=== PATIENT | female | born 1955 | race Caucasian/White ===

== ENCOUNTER 2018-06-26 18:48 | Emergency (ER) | payer MEDICARE ==
[~2018-06-26] VITALS: Ht 167.6 cm; Wt 90.7 kg
[2018-06-26] MEDS ORDERED: CELEXA40 MG PO (19:00)
[2018-06-26] MEDS ORDERED: VRAYLAR4.5 MG PO (19:00)
[2018-06-26] MEDS ORDERED: OMEPRAZOLE40 MG PO (19:01)
[2018-06-26] MEDS ORDERED: LAMICTAL150 MG PO (19:01)
[2018-06-26] MEDS ORDERED: CLONAZEPAM 1 MG1 M1 PO ×2 (19:02→21:49)
[2018-06-26 19:30] LABS: ABSOLUTE BASOPHILS 0.1 thou/uL (0.0-0.2); ABSOLUTE EOSINOPHILS 0.2 thou/uL (0.0-0.7); ABSOLUTE LYMPHOCYTES 1.5 thou/uL (0.8-5.3); ABSOLUTE MONOCYTES 1.1 thou/uL (0.0-1.2); ABSOLUTE NEUTROPHILS 9.6 thou/uL (1.6-8.1); BASOPHILS 1.1 %; EOSINOPHILS 1.7 %; HEMATOCRIT 52.2 % (37.0-47.0); HEMOGLOBIN 17.2 gm/dL (12.0-15.0); LYMPHOCYTES 12.1 %; MCH 30.1 pg (26.0-34.0); MCHC 32.8 g/dL (28.0-37.0); MCV 91.7 fL (80.0-100.0); MONOCYTES 8.6 %; NUCLEATED RBCS 0 /100WBC; PLATELET COUNT* 656 thou/uL (150-400); POLYS 76.5 %; RDW-CV 14.9 % (10.5-14.5); WBC 12.6 thou/uL (4.0-11.0)
[2018-06-26 19:42] LABS: INR 1.1; PROTIME 10.8 Seconds (9.20-11.50)
[2018-06-26 20:02] LABS: ANION GAP 11 mmol/L (7-16); BUN 14 mg/dL (7-18); CALCIUM 9.2 mg/dL (8.5-10.1); CHLORIDE 102 mmol/L (98-107); CO2 30 mmol/L (21-32); CREATININE 0.7 mg/dL (0.6-1.3); GLUCOSE 112 mg/dL (70-99); SODIUM 143 mmol/L (136-145); TROPONIN-I LEVEL <0.06 ng/mL (<0.06)
[2018-06-26 20:03] LABS: ALBUMIN 3.8 g/dL (3.4-5.0); ALKALINE PHOSPHATASE 80 U/L (46-116); LIPASE 178 U/L (73-393); MAGNESIUM 2.2 mg/dL (1.8-2.4); NT-PRO BRAIN NAT PEPTIDE 419 pg/mL (<300); SGOT 21 U/L (15-37); SGPT 33 U/L (30-65); TOTAL BILIRUBIN 0.8 mg/dL (<0.1-1.0); TOTAL PROTEIN 7.5 g/dL (6.4-8.2)
[2018-06-26 20:06] LABS: POTASSIUM 2.9 mmol/L (3.5-5.1)
[2018-06-26] MEDS ORDERED: TRAMADOL 50 MG50 MG PO (21:49)
[2018-06-26] MEDS ORDERED: ZOFRAN ODT4 MG PO (22:00)
[2018-06-26 22:07] VITALS: BP 134/91
--- NOTE | 2018-06-27 10:46 | EKG ---
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: Jerry ALTMAN : 1955 Requested By: Roxana Rosales Order Number: [id number] MD: Abraham Love Measurements Intervals [place] Rate: 95 P: 71 [place]: 128 QRS: 80 QRSD: 86 T: 137 QT: 440 QTc: 553 Interpretive Statements Sinus rhythm Probable left atrial enlargement Borderline repolarization abnormality Prolonged QT interval Baseline wander in lead(s) V5 No previous ECG available for comparison Electronically Signed On 06-27-2018 10:45:54 CDT by Abraham Love [email or web address] <ELECTRONICALLY SIGNED> By: Abraham Love MD, [facility] 06/27/18 1045 54 54 Abraham Love MD, FACC /EPI
== END 2018-06-26 22:07 | disposition home or self-care (01) ==
LOC: M.ERS 18:48
PROVIDERS: Emergency Medicine
DX: F11.23 Opioid dependence with withdrawal (principal); R10.13 Epigastric pain; R11.2 Nausea with vomiting, unspecified; I10 Essential (primary) hypertension; Z86.73 Personal history of transient ischemic attack (TIA), and cerebral infarction without residual deficits